=== PATIENT | female | born 1965 | race Caucasian/White ===

== ENCOUNTER 2017-07-04 14:36 | Emergency (ER) | payer MEDICAID, OTHER ==
[~2017-07-04] VITALS: Ht 154.9 cm; Wt 72.7 kg
[~2017-07-04 14:36] MED LIST: ALBU8HFA IH; MOME13HF2 IH; OMEP20 PO
[2017-07-04] MEDS ORDERED: METO-323 PO (14:47)
[2017-07-04] MEDS ORDERED: LISI-661 PO (14:47)
[2017-07-04] MEDS ORDERED: PANT40TA25 PO (14:47)
[2017-07-04] MEDS ORDERED: DiphenhydrAMINE HCL 25 MG CAPSULE PO ONE (15:45)
[2017-07-04 17:34] VITALS: BP 124/81
== END 2017-07-04 17:36 | disposition home or self-care (01) ==
LOC: EMS 14:41
DX: B88.9 Infestation, unspecified (principal); I10 Essential (primary) hypertension; J45.909 Unspecified asthma, uncomplicated; Z88.8 Allergy status to other drugs, medicaments and biological substances; Z88.2 Allergy status to sulfonamides; Z76.0 Encounter for issue of repeat prescription
CPT/HCPCS: 99283

== ENCOUNTER 2017-11-10 20:04 | Emergency (ER) | payer MEDICAID ==
[~2017-11-10 20:04] MED LIST changes: -ALBU8HFA IH; +LISI-661 PO; +METO25XL PO; -MOME13HF2 IH; -OMEP20 PO; +PANT40TA25 PO
== END 2017-11-10 22:03 | disposition left against medical advice (07) ==
LOC: EMS 20:06
DX: K59.00 Constipation, unspecified (principal); Z53.21 Procedure and treatment not carried out due to patient leaving prior to being seen by health care provider

== ENCOUNTER 2022-04-12 23:41 | Emergency (ER) | payer MEDICAID ==
[~2022-04-12] VITALS: Ht 157.5 cm; Wt 88.6 kg
[~2022-04-12 23:41] MED LIST changes: -LISI-661 PO; +LISI-893 PO; +PANT-31 PO; -PANT40TA25 PO
[2022-04-12 23:51] VITALS: BP 124/88
[2022-04-13] MEDS ORDERED: DICL100G51 TP (00:13)
[2022-04-13] MEDS ORDERED: FLUT100B IH (00:13)
[2022-04-13] MEDS ORDERED: LUBI8CAP PO (00:13)
[2022-04-13] MEDS ORDERED: DILT60TA3 PO (00:13)
[2022-04-13] MEDS ORDERED: PHEN-1103 PO (00:13)
== END 2022-04-13 02:30 | disposition left against medical advice (07) ==
LOC: EMS 23:43
DX: Z53.21 Procedure and treatment not carried out due to patient leaving prior to being seen by health care provider (principal)
CPT/HCPCS: 93005